=== PATIENT | female | born 1980 | race Caucasian/White ===

== ENCOUNTER 2016-11-29 20:21 | Outpatient (CLI) ==
[2013-03-04 15:44] VITALS: TEMP 98.9
[2016-09-09 07:21] VITALS: BMI 27.5
== END 2016-11-29 20:22 ==
LOC: AMBL 20:21
PROVIDERS: ATTEND Internal Medicine Geriatric Medicine
DX: S50.12XA Contusion of left forearm, initial encounter (principal); S50.11XA Contusion of right forearm, initial encounter; S40.022A Contusion of left upper arm, initial encounter; S40.021A Contusion of right upper arm, initial encounter; R10.84 Generalized abdominal pain; R51 Headache; M54.2 Cervicalgia; M54.9 Dorsalgia, unspecified; F19.10 Other psychoactive substance abuse, uncomplicated; Y00.XXXA Assault by blunt object, initial encounter; Y04.2XXA Assault by strike against or bumped into by another person, initial encounter

== ENCOUNTER 2017-05-26 07:57 | Emergency (ER) ==
[2017-05-26 08:06] VITALS: BP 144/94; TEMP 97.9; BMI 26.7
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
[2017-05-26 08:50] LABS: BASOPHILS % (AUTO) 0.4 % (0.0-3.0); EOSINOPHILS # (AUTO) 0.1 K/ul (0.0-0.7); EOSINOPHILS % (AUTO) 0.9 % (0.0-7.0); HEMOGLOBIN 13.2 g/dl (12.0-16.0); IMMATURE GRANULOCYTE % (AUTO) 0.3 % (0.0-5.0); LYMPHOCYTES # (AUTO) 2.5 K/uL (0.60-3.4); LYMPHOCYTES % (AUTO) 27.6 (10.0-50.0); MEAN CORPUSCULAR HEMOGLOBIN 32.7 pg (27.0-31.0); MEAN CORPUSCULAR HGB CONC 34.7 (31.8-35.4); MEAN CORPUSCULAR VOLUME 94.1 fl (81.0-99.0); MONOCYTES # (AUTO) 0.7 K/uL (0.4-2.0); MONOCYTES % (AUTO) 7.4 (0-10); NEUTROPHILS # (AUTO) 5.8 K/ul (2.0-6.9); NEUTROPHILS % (AUTO) 63.4; PLATELET COUNT 322 10^3/uL (140-440); RED BLOOD COUNT 4.04 10^6/ul (4.20-5.40); WHITE BLOOD COUNT 9.08 K/ul (4.6-10.2)
[2017-05-26 09:09] LABS: ALBUMIN 3.7 g/dL (3.4-5.0); ALBUMIN/GLOBULIN RATIO 1.32; ANION GAP 11.6; BILIRUBIN,TOTAL 0.31 mg/dL (0.00-1.20); BUN/CREATININE RATIO 8.97; CALCIUM 9.2 mg/dL (8.2-10.2); CREATININE 0.78 mg/dL (0.60-1.30); POTASSIUM 3.6 mmol/L (3.5-5.10); TOTAL PROTEIN 6.5 g/dL (6.4-8.2)
[2017-05-26 09:43] LABS: BILIRUBIN,URINE Negative (NEGATIVE); KETONES,URINE Negative (NEGATIVE); LEUKOCYTE ESTERASE ,URINE Trace (NEGATIVE); NITRITE,URINE Negative (NEGATIVE); PH,URINE 7.5 (5-9); PROTEIN,URINE Negative (NEGATIVE); URINE, BLOOD 1+ (NEGATIVE)
[2017-05-26 09:46] LABS: ADD URINE MICROSCOPIC YES
[2017-05-26] MEDS ORDERED: TYLENOL PO STA (10:11)
[2017-05-26 10:13] LABS: COCAIN SCREEN,URINE NEGATIVE (NEGATIVE)
== END 2017-05-26 11:12 | disposition home or self-care (01) ==
LOC: ED 07:57
DX: F15.90 Other stimulant use, unspecified, uncomplicated (principal); R11.2 Nausea with vomiting, unspecified; R10.9 Unspecified abdominal pain; F17.210 Nicotine dependence, cigarettes, uncomplicated; R46.89 Other symptoms and signs involving appearance and behavior
CPT/HCPCS: 36415; 80053; 80306; 81001; 82550; 83605; 85025; 99283

== ENCOUNTER 2017-08-26 16:09 | Emergency (ER) ==
[2017-08-26 16:15] VITALS: BP 161/124; TEMP 98.9; BMI 24.4
[2017-08-26] MEDS ORDERED: SODIUM CHLORIDE 1,000 ML IV STA (16:24)
[2017-08-26] MEDS ORDERED: CARDENE-NACL 20 MG/200 ML SOLN 20 MG in PREMIX 200ML 0.86% SODIUM CHLORIDE 1 BAG IV SCH (16:30)
--- NOTE | 2017-08-26 16:42 | CT ---
EXAM: CT BRAIN HISTORY: Left-sided weakness TECHNIQUE: CT brain without intravenous contrast. 5-mm axial sections with Reformations. COMPARISON: FINDINGS: Brain is unremarkable without distinct evidence of hemorrhage or large vessel distribution recent is chemic infarction. There is no suggestion of acute hydrocephalus or subdural fluid collection. No m ass or mass effect. Cranium is within normal limits. Mastoid air cells are aerated. The visualized paranasal sinuses a re clear. IMPRESSION: No acute intracranial process. MRI is more sensitive regarding acute ischemia and infar ction if indicated clinically.
[2017-08-26 16:46] LABS: BASOPHILS % (AUTO) 0.3 % (0.0-3.0); EOSINOPHILS % (AUTO) 0.3 % (0.0-7.0); HEMATOCRIT 38.3 % (37.0-47.0); HEMOGLOBIN 13.3 g/dl (12.0-16.0); IMMATURE GRANULOCYTE % (AUTO) 0.4 % (0.0-5.0); LYMPHOCYTES # (AUTO) 2.3 K/uL (0.60-3.4); LYMPHOCYTES % (AUTO) 18.9 (10.0-50.0); MEAN CORPUSCULAR HEMOGLOBIN 32.7 pg (27.0-31.0); MEAN CORPUSCULAR HGB CONC 34.7 (31.8-35.4); MEAN CORPUSCULAR VOLUME 94.1 fl (81.0-99.0); MONOCYTES # (AUTO) 0.9 K/uL (0.4-2.0); MONOCYTES % (AUTO) 7.5 (0-10); NEUTROPHILS # (AUTO) 8.8 K/ul (2.0-6.9); NEUTROPHILS % (AUTO) 72.6; PLATELET COUNT 335 10^3/uL (140-440); RED BLOOD COUNT 4.07 10^6/ul (4.20-5.40)
--- NOTE | 2017-08-26 16:59 | DI ---
EXAM: CHEST FRONTAL VIEW HISTORY: Cough. COMPARISON: 09/08/2014 FINDINGS: Heart size and mediastinum remain within normal limits. Lungs are free of infiltrate. No consolidation or pleural fluid. There is no pneumothorax or acute bony finding. IMPRESSION: Findings within normal limits.
[2017-08-26 17:12] LABS: ALANINE AMINOTRANSFERASE 12 U/L (12-78); ALBUMIN/GLOBULIN RATIO 1.18; ALKALINE PHOSPHATASE 73 U/L (42-98); ASPARTATE AMINO TRANSFERASE 10 U/L (15-37); BLOOD UREA NITROGEN 10 mg/dL (7-18); BUN/CREATININE RATIO 13.33; CALCIUM 9.5 mg/dL (8.2-10.2); CARBON DIOXIDE 22 mmol/L (21-32); CHLORIDE 107 mmol/L (98-107); CREATINE KINASE 47 U/L; CREATININE 0.75 mg/dL (0.60-1.30); GLUCOSE 99 mg/dL (70-110); SODIUM 139 mmol/L (136-145); TOTAL PROTEIN 7.4 g/dL (6.4-8.2)
--- NOTE | 2017-08-26 17:28 | ED.PDOC ---
General ED Provider: Dr. ANDREW PONCE Chief Complaint: Stroke Stated Complaint: pateint is a 36 year old female who is brought by family in wheelchair, stating that she is unable to move left side. She would no speak or answer questions. Family denies any seizures or Trauma. Time Seen by Physician: 16:49 Mode of Arrival: Walk-In Information Source: Family Exam Limitations: No limitations [facility] Nursing and Triage Documentation Reviewed and Agree: Yes Neurological Complaint Exam - Weakness Complaint/Exam Last Known Well: just prior to arrival Onset: Sudden Symptoms Are: Still present Timing: Constant Initial Severity: Severe Current Severity: Mild Character: Reports: Unable to describe Associated Signs and Symptoms: Reports: Loss of balance Cardiac Risk Factors: Reports: None CVA Risk Factors: Reports: None Related Surgical History: Reports: None JVD Present: No Carotid Bruit Present: No Rectal Heme Positive: No Nystagmus Present: No Gag Reflex Present: Yes Meningeal Signs Positive: No Focal Weakness: Present: LUE, LLE Gait: Abnormal Babinski Sign: Negative Right, Negative Left Differential Diagnoses: Metabolic abnormalities, Other (cva) Quality Indicators for Cardiac Chest Pain: EKG in 10min. Review of Systems - Review Of Systems Constitutional: Reports: Weakness, Loss of appetite Eyes: Reports: No symptoms Respiratory: Reports: No symptoms Cardiac: Reports: No symptoms GI: Reports: No symptoms : Reports: No symptoms Musculoskeletal: Reports: No symptoms Skin: Reports: No symptoms Neurological: Reports: Anxiety, Depressed, Emotional problems, Weakness All Other Systems: Reviewed and Negative Past Medical History - Past Medical History Previously Healthy: Yes Endocrine: Reports: None Cardiovascular: Reports: None Respiratory: Reports: None Hematological: Reports: None Gastrointestinal: Reports: None Genitourinary: Reports: None Neuro/Psych: Reports: Anxiety, Depression, Bipolar Disorder Musculoskeletal: Reports: None Cancer: Reports: None Last Menstrual Period: 3 weeks Other Pertinent Past Medical History: Drug Abuse - Surgical History General Surgical History: Reports: Tubal ligation - Family History Family History: Reports: Heart (MGM), Other (Mother COPD), Unknown (father) - Social History Smoking Status: Current every day smoker Hx Substance Use: Yes (ALCOHOLIC) Alcohol Screening: None - Immunizations Influenza Vaccine within 12 Months: No Pneumococcal Vaccine up to Date: No Physical Exam - Physical Exam Appearance: Ill-appearing Eyes: ZULEIMA, EOMI ENT: Ears normal Neck: Supple Respiratory: Airway patent, Breath sounds clear, Breath sounds equal, Respirations nonlabored Cardiovascular: Pulses normal, No rub, No murmur, Tachycardia GI/: Soft Musculoskeletal: Normal strength Skin: Warm, Dry Neurological: Focal Deficit Psychiatric: Anxious, Depressed Re-Evaluation - Re-Evaluation Time of Re-Evaluation: 18:15 Status: Improved Vital Signs Stable: Yes Appearance: NAD Lungs: Clear Skin: Warm and Dry Neuro: Alert and Oriented X3 (states she was pretending to have symtoms to get away from a home situation that was stressing her out.) Additional Comments: Feel anxious would like to have some xanax to help calm her nerves. Critical Care Note - Critical Care Note Total Time (mins): 35 Comments: Declined to have a counsellor called to see her declined to have police come see her Denies any suicidal or homicidal Ideation. Course - Course Hematology/Chemistry: 08/26/17 16:40 08/26/17 16:40 Orders, Labs, Meds: Lab Review 08/26/17 08/26/17 08/26/17 16:40 16:40 17:40 WBC 12.10 H RBC 4.07 L Hgb 13.3 Hct 38.3 MCV 94.1 MCH 32.7 H MCHC 34.7 RDW Coeff of Sarah 12.2 Plt Count 335 Immature Gran % (Auto) 0.4 Neut % (Auto) 72.6 Lymph % (Auto) 18.9 [place] % (Auto) 7.5 Eos % (Auto) 0.3 Baso % (Auto) 0.3 Immature Gran # (Auto) 0.1 Neut # 8.8 H Lymph # 2.3 [place]morton # 0.9 Eos # 0.0 Baso # 0.0 Sodium 139 Potassium 4.0 Chloride 107 Carbon Dioxide 22 Anion Gap 14.0 BUN 10 Creatinine 0.75 Estimated GFR (MDRD) 87.00 BUN/Creatinine Ratio 13.33 Glucose 99 Calcium 9.5 Total Bilirubin 0.30 AST 10 L ALT 12 Alkaline Phosphatase 73 Total Creatine Kinase 47 Troponin I < 0.0100 Total Protein 7.4 Albumin 4.0 Globulin 3.4 Albumin/Globulin Ratio 1.18 Urine Opiates Screen Negative Ur Oxycodone Screen Negative Urine Methadone Screen Negative Ur Propoxyphene Screen Negative Ur Barbiturates Screen Negative U Tricyclic Antidepress Negative Ur Phencyclidine Scrn Negative Ur Amphetamine Screen Positive U Methamphetamines Scrn Positive U Benzodiazepines Scrn Negative Urine Cocaine Screen Negative U Cannabinoids Screen Positive Orders Category Date Time Status EKG-(ED ONLY) Stat CARDIO 08/26/17 16:25 Completed ED ACCUCHECK ASSESSMENT .ONCE EMERGENCY 08/26/17 16:23 Active ED BRICK GRADER APPLIED .ONCE EMERGENCY 08/26/17 16:24 Active ED IV/MEDIPORT/POWERPORT .ONCE EMERGENCY 08/26/17 16:24 Active CBC W/ AUTO DIFF Stat LAB 08/26/17 16:40 Completed COMPREHENSIVE METABOLIC PANEL Stat LAB 08/26/17 16:40 Completed CREATINE KINASE Stat LAB 08/26/17 16:40 Completed DRUG SCREEN, URINE, RAPID Stat LAB 08/26/17 17:40 Completed TROPONIN I Stat LAB 08/26/17 16:40 Completed 0.9 % Sodium Chloride [Saline Flush] MEDS 08/26/17 16:24 Discontinued 1 syr IVF PRN PRN Alprazolam [Xanax] MEDS 08/26/17 17:50 Discontinued 0.5 mg .ROUTE .STK-MED ONE Alprazolam [Xanax] MEDS 08/26/17 17:47 Discontinued 0.5 mg PO ONCE STA Sodium Chloride 0.9% [Sodium Chloride] 1,000 ml MEDS 08/26/17 16:24 Discontinued IV 125 mls/hr CHEST, 1V AP ONLY Stat RADS 08/26/17 16:[address] HEAD W/O CONTRAST Stat RADS 08/26/17 16:23 Completed Medications Discontinued Medications Generic Name Dose Route Start Last Admin Trade Name Freq PRN Reason Stop Dose Admin Alprazolam 0.5 mg 08/26/17 17:47 08/26/17 17:55 Xanax PO 08/26/17 17:48 0.5 mg ONCE STA Administration Sodium Chloride 1,000 mls @ 125 mls/hr 08/26/17 16:24 08/26/17 17:11 Sodium Chloride IV 08/27/17 00:23 125 mls/hr .Q8H STA Administration Sodium Chloride 1 syr 08/26/17 16:24 08/26/17 17:11 Saline Flush IVF 1 syr PRN PRN Administration To flush IV Vital Signs: Temp Pulse Resp BP Pulse Ox 08/26/17 16:10 98.9 F 114 H 20 161/124 H 95 Departure - Departure Time of Disposition: 18:08 Disposition: HOME SELF-CARE Discharge Problem: Drug abuse, amphetamine type, Anxiety Instructions: Methamphetamine Abuse (ED) Condition: Stable Pt referred to PMD for follow-up: Yes Additional Instructions: Follow up with PCP in 2 days Call you counsellor is you need to talk to someone about your home stress. Allergies/Adverse Reactions: Allergies codeine Adverse Reaction (Verified 08/26/17 16:22) Home Medications: Ambulatory Orders Diazepam [Valium] 1 tab PO TID 10/06/15 Quetiapine Fumarate [Seroquel] 100 mg PO BEDTIME 07/26/16 Disposition Discussed With: Patient
[2017-08-26] MEDS ORDERED: XANAX PO STA (17:47)
[2017-08-26] MEDS ORDERED: XANAX ONE (17:50)
[2017-08-26 17:57] LABS: COCAIN SCREEN,URINE NEGATIVE (NEGATIVE)
== END 2017-08-26 18:20 | disposition home or self-care (01) ==
LOC: ED 16:09
DX: F15.10 Other stimulant abuse, uncomplicated (principal); F41.9 Anxiety disorder, unspecified; F17.210 Nicotine dependence, cigarettes, uncomplicated
CPT/HCPCS: 36415; 80053; 80306; 82550; 82962; 84484; 85025; 93005; 93010; 96360; 99283

== ENCOUNTER 2017-10-21 20:39 | Inpatient (IN) ==
[2017-10-21] MEDS: TORADOL IM STA ×2 (21:07→21:08)
[2017-10-21] MEDS ORDERED: KEFLEX PO STA (23:07)
[2017-10-21] MEDS ORDERED: VANCOMYCIN 1,000 MG in SODIUM CHLORIDE 200 ML IV STA ×2 (23:07→23:21)
--- NOTE | 2017-10-21 23:19 | ED.PDOC ---
General ED Provider: Dr. CHHAYA QUEZADA Chief Complaint: Bite Stated Complaint: Patient has swollen right hand, redness, stratek going up in the arm. says she injected some drugs, Time Seen by Physician: 23:16 Mode of Arrival: Walk-In Information Source: Patient Primary Care Provider: PETE ECHOLS Nursing and Triage Documentation Reviewed and Agree: Yes Reviewed sepsis parameters & appropriate labs ordered?: No System Inflammatory Response Syndrome: Not Applicable Sepsis Protocol: For patient's 13 years and over: Temp is 96.8 and below OR 101 and greater Pulse >90 BPM Resp >20/minute Acutely Altered Mental Status Are patient's symptoms suggestive of a new infection, such as: -Pneumonia -Skin, Soft Tissue -Endocarditis -UTI -Bone, Joint Infection -Implantable Device -Acute Abdominal Infection -Wound Infection -Meningitis -Blood Stream Catheter Infection -Unknown Skin Complaint Exam - Skin/Soft Tissue Complaint/Exam Symptoms Are: Still present Timing: Constant Initial Severity: Moderate Current Severity: Moderate Character: Reports: Redness, Swelling, Raised, Painful Aggravating: Reports: Touch Alleviating: Reports: None Associated Signs and Symptoms: Reports: Fever, Tenderness, Red streaks, Joint swelling. Denies: Chills, Itching, Drainage, Bruising Related History: Reports: Similar episode Related Surgical History: Reports: None Recent Exposure to Others w/Similar Symptoms: No Skin Findings: Present: Erythema, Induration, Skin lesion Differential Diagnoses: Cellulitis, MRSA Review of Systems - Review Of Systems Constitutional: Reports: No symptoms Eyes: Reports: No symptoms Ears, Nose, Mouth, Throat: Reports: No symptoms Respiratory: Reports: No symptoms Cardiac: Reports: No symptoms GI: Reports: No symptoms : Reports: No symptoms Musculoskeletal: Reports: No symptoms Neurological: Reports: No symptoms Endocrine: Reports: No symptoms Hematologic/Lymphatic: Reports: No symptoms All Other Systems: Reviewed and Negative Past Medical History - Past Medical History Previously Healthy: Yes Endocrine: Reports: None Cardiovascular: Reports: None Respiratory: Reports: None Hematological: Reports: None Gastrointestinal: Reports: None Genitourinary: Reports: None Neuro/Psych: Reports: Anxiety, Depression, Bipolar Disorder Musculoskeletal: Reports: None Cancer: Reports: None Last Menstrual Period: 2 months Other Pertinent Past Medical History: Drug Abuse - Surgical History General Surgical History: Reports: Tubal ligation - Family History Family History: Reports: Heart, Other (Mother COPD), Unknown (father) - Social History Smoking Status: Current every day smoker, Light tobacco smoker Hx Substance Use: Yes (ALCOHOLIC, marijuana) Alcohol Screening: None - Immunizations Tetanus Shot up to Date: No (2008) Influenza Vaccine within 12 Months: No Pneumococcal Vaccine up to Date: No Physical Exam - Physical Exam Appearance: Ill-appearing, Thin Eyes: ZULEIMA, EOMI Skin: Warm (rt hand red spot, at injectuion site, red streak going up in the arm ), Dry, Normal color Critical Care Note - Critical Care Note Total Time (mins): 30 Course - Course Hematology/Chemistry: 10/21/17 21:18 10/21/17 21:18 Orders, Labs, Meds: Lab Review 10/21/17 10/21/17 10/21/17 21:18 21:18 21:18 WBC 16.56 H RBC 4.12 L Hgb 13.5 Hct 40.2 MCV 97.6 MCH 32.8 H MCHC 33.6 RDW Coeff of Sarah 12.6 Plt Count 283 Immature Gran % (Auto) 0.3 Neut % (Auto) 71.1 Lymph % (Auto) 21.0 Potter % (Auto) 5.8 Eos % (Auto) 1.4 Baso % (Auto) 0.4 Immature Gran # (Auto) 0.1 Neut # 11.8 H Lymph # 3.5 H Potter # 1.0 Eos # 0.2 Baso # 0.1 Sodium 141 Potassium 3.4 L Chloride 105 Carbon Dioxide 25 Anion Gap 14.4 BUN 12 Creatinine 0.86 Estimated GFR (MDRD) 74.00 BUN/Creatinine Ratio 13.95 Glucose 94 Lactic Acid 13.1 Calcium 9.4 Total Bilirubin 0.6 AST 11 L ALT 11 L Alkaline Phosphatase 82 Total Protein 7.7 Albumin 4.0 Globulin 3.7 Albumin/Globulin Ratio 1.08 Procalcitonin 10/21/17 21:18 WBC RBC Hgb Hct MCV MCH MCHC RDW Coeff of Sarah Plt Count Immature Gran % (Auto) Neut % (Auto) Lymph % (Auto) Potter % (Auto) Eos % (Auto) Baso % (Auto) Immature Gran # (Auto) Neut # Lymph # Potter # Eos # Baso # Sodium Potassium Chloride Carbon Dioxide Anion Gap BUN Creatinine Estimated GFR (MDRD) BUN/Creatinine Ratio Glucose Lactic Acid Calcium Total Bilirubin AST ALT Alkaline Phosphatase Total Protein Albumin Globulin Albumin/Globulin Ratio Procalcitonin < 0.05 Orders Category Date Time Status ED IV/MEDIPORT/POWERPORT .ONCE EMERGENCY 10/21/17 23:07 Active BLOOD CULTURE Stat LAB 10/21/17 21:18 Received CBC W/ AUTO DIFF Stat LAB 10/21/17 21:18 Completed COMPREHENSIVE METABOLIC PANEL Stat LAB 10/21/17 21:18 Completed LACTIC ACID Stat LAB 10/21/17 21:18 Completed PROCALCITONIN Stat LAB 10/21/17 21:18 Completed URINALYSIS C & S IF INDICATED Stat LAB 10/21/17 20:59 Uncollected URINE DRUG SCREEN (RAPID FOR ED) [DRUG SCREEN, URINE, LAB 10/21/17 20:59 Uncollected RAPID] Stat URINE Stat LAB 10/21/17 20:59 Uncollected 0.9 % Sodium Chloride [Saline Flush] MEDS 10/21/17 23:07 Ordered 1 syr IVF PRN PRN Cephalexin [Keflex] MEDS 10/21/17 23:07 Discontinued 500 mg PO ONCE STA Ketorolac Tromethamine [Toradol] MEDS 10/21/17 20:58 Discontinued 30 mg IM ONCE STA Vancomycin HCl [Vancomycin] 1,000 mg MEDS 10/21/17 23:07 Active 0.9 % Sodium Chloride [Sodium Chloride] 200 ml IV ONCE Medications Generic Name Dose Route Start Last Admin Trade Name Freq PRN Reason Stop Dose Admin Vancomycin HCl 1,000 mg/ 200 mls @ 100 mls/hr 10/21/17 23:07 Sodium Chloride IV 10/22/17 01:06 ONCE STA Sodium Chloride 1 syr 10/21/17 23:07 Saline Flush IVF PRN PRN To flush IV Discontinued Medications Generic Name Dose Route Start Last Admin Trade Name Freq PRN Reason Stop Dose Admin Cephalexin 500 mg 10/21/17 23:07 Keflex PO 10/21/17 23:08 ONCE STA Ketorolac Tromethamine 30 mg 10/21/17 20:58 10/21/17 21:08 Toradol IM 10/21/17 20:59 Not Given ONCE STA Vital Signs: Temp Pulse Resp BP Pulse Ox 10/21/17 20:40 98.1 F 94 H 20 141/74 H 98 Departure - Departure Time of Disposition: 23:19 Disposition: ADMITTED INPATIENT Discharge Problem: Adenitis Cellulitis Qualifiers: Site of cellulitis: extremity Site of cellulitis of extremity: upper extremity Laterality: right Qualified Code(s): L03.113 - Cellulitis of right upper limb Instructions: Cellulitis (ED) Condition: Stable Pt referred to PMD for follow-up: No IPMP verified?: No Allergies/Adverse Reactions: Allergies codeine Adverse Reaction (Verified 10/21/17 20:51) ketorolac [From Toradol] Adverse Reaction (Verified 10/21/17 21:15) Home Medications: Ambulatory Orders 1 [No Reported Medications] 10/21/17 Disposition Discussed With: Patient
[2017-10-21] MEDS ORDERED: ROCEPHIN 1 GM in SODIUM CHLORIDE 50 ML IV SCH (23:30)
[2017-10-21] MEDS ORDERED: ZOFRAN 4 MG/2 ML IVP PRN (23:38)
[2017-10-21] MEDS ORDERED: VANCOMYCIN ONE (23:39)
[2017-10-22] MEDS ORDERED: VANCOMYCIN ONE (00:23)
[2017-10-22] MEDS: LIBRIUM PO SCH ×3 (00:52→20:27)
[2017-10-22] MEDS: SODIUM CHLORIDE 1,000 ML IV SCH ×2 (00:52→17:54)
[2017-10-22 01:43] VITALS: BMI 25.5
[2017-10-22] MEDS: LOVENOX SUBCUT SCH ×2 (01:56→09:36)
[2017-10-22] MEDS ORDERED: ROCEPHIN ONE (01:58)
[2017-10-22] MEDS ORDERED: TYLENOL PO PRN (08:33)
[2017-10-22] MEDS ORDERED: VANCOMYCIN 1,000 MG in SODIUM CHLORIDE 200 ML IV SCH (09:00)
[2017-10-22] MEDS ORDERED: NICODERM 21 MG TD SCH (09:00)
[2017-10-22] MEDS: NORCO 5-325 PO PRN ×2 (09:36→15:37)
[2017-10-22] MEDS: VANCOMYCIN 1.5 GM in SODIUM CHLORIDE 500 ML IV SCH (09:38)
[2017-10-22 18:08] VITALS: BP 145/87; TEMP 97.9
[2017-10-22] MEDS ORDERED: ROCEPHIN 1 GM in SODIUM CHLORIDE 50 ML IV SCH (21:00)
[2017-10-23] MEDS: VANCOMYCIN 1.5 GM in SODIUM CHLORIDE 500 ML IV SCH (01:49)
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
--- NOTE | 2017-12-11 10:38 | AMA ---
DATE OF VISIT: 10/22/17 The patient, Faby Wilson, was admitted with right upper extremity cellulitis from the IV drug use. The patient has been getting IV antibiotics, but after getting two doses the patient asked to leave the hospital as she has to take care of the daughter. We did explain the importance of taking the IV antibiotics as the infection can spread to the veins and can be a blood borne infection. She verbalized understanding. At this point the patient decided to go AMA and the patient signed that papers and just left the hospital. Advised in case that things get worse, please come back. ELIZABETH
== END 2017-10-22 21:00 | disposition left against medical advice (07) | DRG 603 ==
LOC: ED 20:39 → MEDSURG A 23:33
PROVIDERS: ADMIT Emergency Medicine; ATTEND Emergency Medicine
DX: L03.113 Cellulitis of right upper limb (principal); I80.8 Phlebitis and thrombophlebitis of other sites; F15.90 Other stimulant use, unspecified, uncomplicated; F11.90 Opioid use, unspecified, uncomplicated; F12.90 Cannabis use, unspecified, uncomplicated; I88.9 Nonspecific lymphadenitis, unspecified; F17.200 Nicotine dependence, unspecified, uncomplicated; F41.9 Anxiety disorder, unspecified
CPT/HCPCS: 36415; 80053; 80306; 81001; 81025; 83605; 84145; 85025; 87040; 93005; 93010; 96361; 96365; 96366; 99284

== ENCOUNTER 2018-01-09 18:01 | Outpatient (CLI) ==
[2013-03-04 15:44] VITALS: TEMP 98.9
[2018-01-09 18:26] VITALS: BMI 25.0
== END 2018-01-09 18:02 | disposition critical access hospital (66) ==
LOC: AMBL 18:01
PROVIDERS: ATTEND Emergency Medicine
DX: S19.9XXA Unspecified injury of neck, initial encounter (principal); S00.93XA Contusion of unspecified part of head, initial encounter; S49.92XA Unspecified injury of left shoulder and upper arm, initial encounter; S49.91XA Unspecified injury of right shoulder and upper arm, initial encounter; S89.91XA Unspecified injury of right lower leg, initial encounter; S89.92XA Unspecified injury of left lower leg, initial encounter; Y04.8XXA Assault by other bodily force, initial encounter

== ENCOUNTER 2018-01-09 18:12 | Emergency (ER) | payer MEDICAID, OTHER ==
[2018-01-09 18:26] VITALS: TEMP 98.6; BMI 25.0
[2018-01-09] MEDS ORDERED: ZOFRAN 4 MG/2 ML IM STA (19:11)
[2018-01-09] MEDS ORDERED: DEMEROL 25 MG/ML VIAL IM STA (19:11)
[2018-01-09 19:13] VITALS: BP 129/83
--- NOTE | 2018-01-09 19:35 | CT ---
EXAM: CT of the head without contrast. HISTORY: Injury. Headache. COMPARISON: None. TECHNIQUE: Contiguous axial images at 5 mm intervals were obtained from the base of the skull to the vertex of the calvarium. No contrast was given. FINDINGS: The CSF containing spaces are normal in size and position. There are no extraaxial fluid collections. There is no evidence of an acute intracranial hemorrhage. There are no masses or mass effect. No areas of abnormal density are identified. Wilson-white differentiation is normal. There i s a scalp hematoma over the left parietal bone. The line skull is intact. There is an air-fluid leve l in the right maxillary sinus. No displaced fractures are seen. The osseous and extracranial soft t issues are otherwise normal. IMPRESSION: 1. No acute intracranial abnormality. 2. Left parietal scalp hematoma. 3. Mucosal thickening air-fluid level in the right maxillary sinus has appearance of sinusitis. No displaced fractures are seen.
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
== END 2018-01-09 20:47 | disposition home or self-care (01) ==
LOC: ED 18:12
DX: S00.03XA Contusion of scalp, initial encounter (principal); S19.9XXA Unspecified injury of neck, initial encounter; Y04.8XXA Assault by other bodily force, initial encounter; F17.210 Nicotine dependence, cigarettes, uncomplicated
CPT/HCPCS: 96372; 99283

== ENCOUNTER 2018-05-16 13:31 | Emergency (ER) ==
[2018-05-16 13:36] VITALS: BP 141/86; TEMP 98.3; BMI 24.3
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
== END 2018-05-16 16:43 | disposition home or self-care (01) ==
LOC: ED 13:31
DX: F15.10 Other stimulant abuse, uncomplicated (principal); F32.9 Major depressive disorder, single episode, unspecified; F41.9 Anxiety disorder, unspecified; F17.210 Nicotine dependence, cigarettes, uncomplicated
CPT/HCPCS: 36415; 80053; 80306; 80307; 81001; 84703; 85025; 87086; 93005; 93010; 99283

== ENCOUNTER 2018-05-31 21:49 | Outpatient (CLI) ==
[2013-03-04 15:44] VITALS: TEMP 98.9
[2018-05-31 22:18] VITALS: BMI 21.9
== END 2018-05-31 21:55 | disposition critical access hospital (66) ==
LOC: AMBL 21:49
PROVIDERS: ATTEND Internal Medicine Geriatric Medicine
DX: R07.9 Chest pain, unspecified (principal)

== ENCOUNTER 2018-05-31 22:00 | Emergency (ER) ==
[2018-05-31 22:18] VITALS: BP 153/97; TEMP 97.1; BMI 21.9
[2018-05-31] MEDS ORDERED: SODIUM CHLORIDE 1,000 ML IV STA (22:32)
[2018-05-31] MEDS ORDERED: NITROSTAT SL STA (22:34)
[2018-05-31] MEDS ORDERED: GI COCKTAIL PO STA (22:34)
[2018-05-31] MEDS ORDERED: ASPIRIN CHEWABLE PO STA (22:34)
--- NOTE | 2018-05-31 22:38 | ED.PDOC ---
General ED Provider: Dr. ANDREW PONCE Chief Complaint: Chest Pain Stated Complaint: Brought by EMS with chest pain for 5 hours. Substernal in location radiating to the left neck with some mild nausea and shortness of breath. Time Seen by Physician: 22:10 Mode of Arrival: Ambulance Information Source: Patient Exam Limitations: No limitations Primary Care Provider: PEPITO SMITH Nursing and Triage Documentation Reviewed and Agree: Yes Does patient meet sepsis criteria?: No System Inflammatory Response Syndrome: Not Applicable Sepsis Protocol: For patient's 13 years and over: Temp is 96.8 and below OR 101 and greater Pulse >90 BPM Resp >20/minute Acutely Altered Mental Status Are patient's symptoms suggestive of a new infection, such as: -Pneumonia -Skin, Soft Tissue -Endocarditis -UTI -Bone, Joint Infection -Implantable Device -Acute Abdominal Infection -Wound Infection -Meningitis -Blood Stream Catheter Infection -Unknown Cardiovascular Complaint Exam - Chest Pain Complaint/Exam Onset: Gradual Duration: 5 hours Symptoms Are: Still present Timing: Constant Initial Severity: Severe Current Severity: Moderate Location: Reports: Midsternal Pain Radiates: Reports: Jaw Associated Signs and Symptoms: Reports: Nausea, Short of air. 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 Review of Systems - Review Of Systems Constitutional: Reports: No symptoms Eyes: Reports: No symptoms Ears, Nose, Mouth, Throat: Reports: No symptoms Respiratory: Reports: No symptoms Cardiac: Reports: Chest pain GI: Reports: Nausea, Poor appetite : Reports: No symptoms Musculoskeletal: Reports: No symptoms Skin: Reports: No symptoms Neurological: Reports: No symptoms Endocrine: Reports: No symptoms Hematologic/Lymphatic: Reports: No symptoms All Other Systems: Reviewed and Negative Past Medical History - Past Medical History Previously Healthy: Yes Endocrine: Reports: None Cardiovascular: Reports: None Respiratory: Reports: None Hematological: Reports: None Gastrointestinal: Reports: None Genitourinary: Reports: None Neuro/Psych: Reports: Anxiety, Depression, Bipolar Disorder Musculoskeletal: Reports: None Cancer: Reports: None Last Menstrual Period: LAST WEEK Other Pertinent Past Medical History: Drug Abuse - Surgical History General Surgical History: Reports: Tubal ligation - Family History Family History: Reports: Heart, Other (Mother COPD), Unknown (father) - Social History Smoking Status: Current every day smoker, Light tobacco smoker Hx Substance Use: Yes (ALCOHOL IN THE PAST-METH RECENTLY) Alcohol Screening: None - Immunizations Tetanus Shot up to Date: Yes Influenza Vaccine within 12 Months: No Pneumococcal Vaccine up to Date: No Physical Exam - Physical Exam Appearance: Ill-appearing Ill-appearing: Moderate Pain Distress: Severe Neck: Supple Respiratory: Airway patent, Breath sounds clear, Breath sounds equal, Respirations nonlabored Cardiovascular: RRR, Pulses normal, No rub, No murmur GI/: Soft, Nontender, No masses, Bowel sounds normal, No Organomegaly Musculoskeletal: Normal strength, ROM intact, No edema, No calf tenderness Skin: Warm, Dry, Normal color Neurological: Alert, Oriented Psychiatric: Anxious Interpretation - Radiology Interpretation Radiology Interpretation By: Radiologist Radiology Results: Negative Exam Interpreted: Portable CXR - EKG Interpretation Time of EKG #1: 22:05 Rate: Normal Rhythm: Sinus Ectopy: None [place]: NL ST Segment: Normal Interpretation: Normal EKG Re-Evaluation - Re-Evaluation Time of Re-Evaluation: 23:21 Status: Improved Critical Care Note - Critical Care Note Total Time (mins): 30 Course - Course Hematology/Chemistry: 05/31/18 22:42 05/31/18 22:42 Orders, Labs, Meds: Lab Review 05/31/18 05/31/18 05/31/18 22:42 22:42 22:42 WBC 10.03 RBC 4.27 Hgb 13.8 Hct 40.0 MCV 93.7 MCH 32.3 H MCHC 34.5 RDW Coeff of Sarah 12.8 Plt Count 313 Immature Gran % (Auto) 0.2 Neut % (Auto) 60.7 Lymph % (Auto) 31.9 Porter % (Auto) 4.9 Eos % (Auto) 2.1 Baso % (Auto) 0.2 Immature Gran # (Auto) 0.0 Neut # (Auto) 6.1 Lymph # (Auto) 3.2 Porter # (Auto) 0.5 Eos # (Auto) 0.2 Baso # (Auto) 0.0 D-Dimer (Manual) 285.71 Sodium 135.7 L Potassium 3.84 Chloride 104.8 Carbon Dioxide 24.9 Anion Gap 9.84 BUN 16.5 Creatinine 0.82 Estimated GFR (MDRD) 78.00 BUN/Creatinine Ratio 20.12 Glucose 128.6 H Calcium 9.38 Total Bilirubin 0.41 AST 20.0 ALT 23.6 Alkaline Phosphatase 65.8 Total Creatine Kinase 53.2 Troponin I < 0.012 Total Protein 7.20 Albumin 3.82 Globulin 3.38 Albumin/Globulin Ratio 1.13 Orders Category Date Time Status EKG-(ED ONLY) Stat CARDIO 05/31/18 22:32 Completed ED IV/MEDIPORT/POWERPORT .ONCE EMERGENCY 05/31/18 22:32 Active CBC W/ AUTO DIFF Stat LAB 05/31/18 22:42 Completed COMPREHENSIVE METABOLIC PANEL Stat LAB 05/31/18 22:42 Completed CREATINE KINASE Stat LAB 05/31/18 22:42 Completed D-DIMER Stat LAB 05/31/18 22:42 Received DRUG SCREEN, URINE, RAPID Stat LAB 05/31/18 22:40 Ordered TROPONIN I Stat LAB 05/31/18 22:42 Completed TROPONIN I Stat LAB 05/31/18 23:59 Ordered 0.9 % Sodium Chloride [Saline Flush] MEDS 05/31/18 22:32 Ordered 1 syr IVF PRN PRN Mag-Al Plus//Lidocaine [Gi Cocktail] MEDS 05/31/18 22:34 Discontinued 30 ml PO ONCE STA Nitroglycerin [Nitrostat] MEDS 05/31/18 22:34 Discontinued 0.4 mg SL ONCE STA Ondansetron HCl/Pf [Zofran 4 mg/2 ml] MEDS 05/31/18 22:45 Discontinued 4 mg IVP ONCE STA Sodium Chloride 0.9% [Sodium Chloride] 1,000 ml MEDS 05/31/18 22:32 Active IV 125 mls/hr CHEST, 1V AP ONLY Stat RADS 05/31/18 22:32 Ordered Medications Generic Name Dose Route Start Last Admin Trade Name Freq PRN Reason Stop Dose Admin Sodium Chloride 1,000 mls @ 125 mls/hr 05/31/18 22:32 05/31/18 22:50 Sodium Chloride IV 06/01/18 06:31 125 mls/hr .Q8H STA Administration Sodium Chloride 1 syr 05/31/18 22:32 05/31/18 22:56 Saline Flush IVF 1 syr PRN PRN Administration To flush IV Discontinued Medications Generic Name Dose Route Start Last Admin Trade Name Freq PRN Reason Stop Dose Admin Al Hydroxide/Mg Hydroxide 30 ml 05/31/18 22:34 05/31/18 22:48 Gi Cocktail PO 05/31/18 22:35 30 ml ONCE STA Administration Nitroglycerin 0.4 mg 05/31/18 22:34 05/31/18 22:49 Nitrostat SL 05/31/18 22:35 0.4 mg ONCE STA Administration Ondansetron HCl 4 mg 05/31/18 22:45 05/31/18 22:55 Zofran 4 Mg/2 Ml IVP 05/31/18 22:46 4 mg ONCE STA Administration Vital Signs: Temp Pulse Resp BP Pulse Ox 05/31/18 22:01 97.1 F L 80 16 153/97 H 98 JOSESITO Risk Score Age >/= 65: No >/= 3 CAD Risk Factors: Yes Known CAD (Stenosis >/= 50%): No ASA Use in Past 7 Days: No Severe Angina (>/= 2 episodes in 24 hours): No EKG ST Changes >/= 0.5mm: No Postive Cardiac Marker: No JOSESITO Total Score: 1 JOSESITO Risk Score: Risk Score Odds of by 30D 0 0.1 (0.1-0.2) 1 0.3 (0.2-0.3) 2 0.4 (0.3-0.5) 3 0.7 (0.6-0.9) 4 1.2 (1.0-1.5) 5 2.2 (1.9-2.6) 6 3.0 (2.5-3.6) 7 4.8 (3.8-6.1) Departure - Departure Time of Disposition: 00:30 Disposition: HOME SELF-CARE Discharge Problem: Dyspepsia, Non-cardiac chest pain, Anxiety Instructions: Chest Pain (ED), Anxiety (ED) Condition: Stable Pt referred to PMD for follow-up: Yes IPMP verified?: No Additional Instructions: Follow up with PCP in 2 days Take over the counter Benadryl as needed for anxiety or insomnia Use over the counter Maalox Stop use of Methamphetamine Allergies/Adverse Reactions: Allergies codeine Adverse Reaction (Verified 05/31/18 22:19) Hives cranberry Adverse Reaction (Verified 05/31/18 22:19) Swelling ketorolac [From Toradol] Adverse Reaction (Verified 05/31/18 22:19) Hives Home Medications: Ambulatory Orders Hydrocodone/Acetaminophen [[place] 7.5-325 Tablet] 1 each PO QID 05/31/18 Transfer Form Completed: No Disposition Discussed With: Patient
[2018-05-31] MEDS ORDERED: ZOFRAN 4 MG/2 ML IVP STA (22:45)
--- NOTE | 2018-06-01 07:59 | DI ---
EXAM: CHEST FRONTAL VIEW HISTORY: Chest pain. COMPARISON: 08/26/2017 FINDINGS: Heart size and mediastinum remain within normal limits. Lungs are free of infiltrate. No consolidation or pleural fluid. There is no pneumothorax or acute bony finding. IMPRESSION: Findings within normal limits.
== END 2018-06-01 01:00 | disposition home or self-care (01) ==
LOC: ED 22:00
DX: R10.13 Epigastric pain (principal); R07.89 Other chest pain; F41.9 Anxiety disorder, unspecified; F17.210 Nicotine dependence, cigarettes, uncomplicated
CPT/HCPCS: 36415; 80053; 80306; 82550; 84484; 85025; 85379; 93005; 93010; 96361; 96374; 99283

== ENCOUNTER 2018-10-08 13:33 | Outpatient (CLI) ==
[2013-03-04 15:44] VITALS: TEMP 98.9
--- NOTE | 2018-10-08 16:14 | DI ---
EXAM: Cervical spine five views, including oblique views HISTORY: Cervical degeneration COMPARISON: None TECHNIQUE: Five views cervical spine were performed, including oblique views FINDINGS: Vertebral bodies normal height. No fracture. No subluxation. Straightening of the glenn l cervical lordosis. Intervertebral disc spaces maintained. Neural foramen grossly patent. Prevert ebral soft tissues appear normal. IMPRESSION: 1. No fracture or subluxation. 2. Straightening of the normal cervical lordosis.
== END 2018-10-08 13:34 | disposition home or self-care (01) ==
LOC: RAD 13:33
PROVIDERS: ATTEND Pain Medicine Interventional Pain Medicine
DX: M50.31 Other cervical disc degeneration, high cervical region (principal); M50.320 Other cervical disc degeneration, mid-cervical region, unspecified level; M50.33 Other cervical disc degeneration, cervicothoracic region; M47.812 Spondylosis without myelopathy or radiculopathy, cervical region; M47.813 Spondylosis without myelopathy or radiculopathy, cervicothoracic region

== ENCOUNTER 2018-10-14 00:40 | Emergency (ER) ==
[2018-10-14 00:51] VITALS: TEMP 98.8; BMI 23.7
--- NOTE | 2018-10-14 01:00 | ED.PDOC ---
General ED Provider: Dr. ANDREW PONCE Chief Complaint: Hypertension Stated Complaint: I am stressed out and my blood pressure is high. admits to using marijuana from the same source. Time Seen by Physician: 00:56 Mode of Arrival: Walk-In Information Source: Patient Primary Care Provider: PEPITO SMITH Nursing and Triage Documentation Reviewed and Agree: Yes Does patient meet sepsis criteria?: No System Inflammatory Response Syndrome: Not Applicable Sepsis Protocol: For patient's 13 years and over: Temp is 96.8 and below OR 101 and greater Pulse >90 BPM Resp >20/minute Acutely Altered Mental Status Are patient's symptoms suggestive of a new infection, such as: -Pneumonia -Skin, Soft Tissue -Endocarditis -UTI -Bone, Joint Infection -Implantable Device -Acute Abdominal Infection -Wound Infection -Meningitis -Blood Stream Catheter Infection -Unknown Review of Systems - Review Of Systems Constitutional: Reports: No symptoms Eyes: Reports: No symptoms Ears, Nose, Mouth, Throat: Reports: No symptoms Respiratory: Reports: No symptoms Cardiac: Reports: Palpitations (prior to arrival now better ) GI: Reports: No symptoms : Reports: No symptoms Musculoskeletal: Reports: No symptoms Skin: Reports: No symptoms Neurological: Reports: Anxiety, Emotional problems Endocrine: Reports: No symptoms Hematologic/Lymphatic: Reports: No symptoms All Other Systems: Reviewed and Negative Past Medical History - Past Medical History Previously Healthy: Yes Endocrine: Reports: None Cardiovascular: Reports: None Respiratory: Reports: None Hematological: Reports: None Gastrointestinal: Reports: None Genitourinary: Reports: None Neuro/Psych: Reports: Anxiety, Depression, Bipolar Disorder, Other (PTSD) Musculoskeletal: Reports: None Cancer: Reports: None Last Menstrual Period: 3 DAYS AGO Other Pertinent Past Medical History: Drug Abuse - Surgical History General Surgical History: Reports: Tubal ligation - Family History Family History: Reports: Heart, Other (Mother COPD), Unknown (father) - Social History Smoking Status: Current every day smoker, Light tobacco smoker Hx Substance Use: Yes (ALCOHOL IN THE PAST-METH RECENTLY) Alcohol Screening: None - Immunizations Tetanus Shot up to Date: Yes Influenza Vaccine within 12 Months: No Pneumococcal Vaccine up to Date: No Physical Exam - Physical Exam Appearance: Well-appearing, No pain distress, Well-nourished Eyes: ZULEIMA, EOMI, Conjunctiva clear ENT: Ears normal, Nose normal, Oropharynx normal Respiratory: Airway patent, Breath sounds clear, Breath sounds equal, Respirations nonlabored Cardiovascular: RRR, Pulses normal, No rub, No murmur GI/: Soft, Nontender, No masses, Bowel sounds normal, No Organomegaly Musculoskeletal: Normal strength, ROM intact, No edema, No calf tenderness Skin: Warm, Dry, Normal color Neurological: Sensation intact, Motor intact, Reflexes intact, Cranial nerves intact, Alert, Oriented Psychiatric: Anxious Re-Evaluation - Re-Evaluation Time of Re-Evaluation: 01:14 Status: Improved Vital Signs Stable: Yes (bp 128/90) Critical Care Note - Critical Care Note Total Time (mins): 0 Course - Course Vital Signs: Temp Pulse Resp BP Pulse Ox 10/14/18 00:40 98.8 F 98 H 20 171/94 H 99 Departure - Departure Time of Disposition: :16 Disposition: HOME SELF-CARE Discharge Problem: Panic anxiety syndrome Instructions: Panic Attack (ED) Condition: Stable Pt referred to PMD for follow-up: Yes IPMP verified?: No Additional Instructions: continue home medications for anxiety and relaxation methods Follow up with YOUR pcp in 3-5 days. Allergies/Adverse Reactions: Allergies codeine Adverse Reaction (Verified 10/14/18 00:51) Hives cranberry Adverse Reaction (Verified 10/14/18 00:51) Swelling ketorolac [From Toradol] Adverse Reaction (Verified 10/14/18 00:51) Hives Home Medications: Ambulatory Orders Buprenorphine HCl/Naloxone HCl [Suboxone 8 mg-2 mg Sl Film] 1 each SL DAILY
[2018-10-14 01:27] VITALS: BP 117/74
== END 2018-10-14 01:27 | disposition home or self-care (01) ==
LOC: ED 00:40
DX: F41.0 Panic disorder [episodic paroxysmal anxiety] (principal); F17.210 Nicotine dependence, cigarettes, uncomplicated
CPT/HCPCS: 99283

== ENCOUNTER 2018-11-30 09:50 | Emergency (ER) ==
[2018-11-30 09:58] VITALS: BP 115/74; TEMP 98.1; BMI 23.5
--- NOTE | 2018-11-30 10:26 | ED.PDOC ---
General ED Provider: Dr. KARLA SAMSON Chief Complaint: Sore Throat Stated Complaint: flu like symptoms and sore throat Time Seen by Physician: 10:00 (seen with yonatan) Mode of Arrival: Walk-In Information Source: Patient Exam Limitations: No limitations Primary Care Provider: MINNIE CHOWDHURY Nursing and Triage Documentation Reviewed and Agree: Yes Does patient meet sepsis criteria?: No If yes, has appropriate treatment been initiated?: No System Inflammatory Response Syndrome: Not Applicable Sepsis Protocol: For patient's 13 years and over: Temp is 96.8 and below OR 101 and greater Pulse >90 BPM Resp >20/minute Acutely Altered Mental Status Are patient's symptoms suggestive of a new infection, such as: -Pneumonia -Skin, Soft Tissue -Endocarditis -UTI -Bone, Joint Infection -Implantable Device -Acute Abdominal Infection -Wound Infection -Meningitis -Blood Stream Catheter Infection -Unknown EENT Complaint Exam - Throat Complaint/Exam Onset/Duration: 2 days Symptoms Are: Still present Timimg: Intermittent Initial Severity: Moderate Current Severity: Mild Aggravating: Reports: Eating Alleviating: Reports: None Associated Signs and Symptoms: Reports: Chills, Cough, Nasal congestion. Denies : Fever, Dysphagia, Drooling, Foreign body sensation, Wheezing, Hoarseness, Sinus discomfort, Difficulty breathing, Lethargy, Irritability, Decreased activity, Vomiting, Diarrhea, Decreased hearing, Ear drainage Related History: Reports: Similar Episode Uvula Midline: Yes Hope-tonsillar Fluctuence: No Scarlatinaform Rash Present: No Lesions: Absent: Lip, Gums, Tongue, Buccal Mucosa, Pharynx Exanthem: Absent: Lip, Gums, Tongue, Buccal Mucosa, Pharynx Vesicles: Absent: Lip, Gums, Tongue, Buccal Mucosa, Pharynx Stridor Present: No Sinus Tenderness Present: No Tonsillar Hypertrophy Present: No Tonsillar Exudate Present: No Hope-tonsillar Swelling Present: No Adenopathy Present: No Splenomegaly Present: No Differential Diagnoses: Influenza, Pharyngitis Review of Systems - Review Of Systems Constitutional: Reports: Chills, Fever, Malaise, Loss of appetite Eyes: Reports: No symptoms Ears, Nose, Mouth, Throat: Reports: Throat pain Respiratory: Reports: Cough Cardiac: Reports: No symptoms GI: Reports: No symptoms : Reports: No symptoms Musculoskeletal: Reports: No symptoms Skin: Reports: No symptoms Neurological: Reports: No symptoms Endocrine: Reports: No symptoms Hematologic/Lymphatic: Reports: No symptoms All Other Systems: Reviewed and Negative Past Medical History - Past Medical History Previously Healthy: Yes Endocrine: Reports: None Cardiovascular: Reports: None Respiratory: Reports: None Hematological: Reports: None Gastrointestinal: Reports: None Genitourinary: Reports: None Neuro/Psych: Reports: Anxiety, Depression, Bipolar Disorder Musculoskeletal: Reports: None Cancer: Reports: None Last Menstrual Period: now Other Pertinent Past Medical History: Drug Abuse - Surgical History General Surgical History: Reports: Tubal ligation - Family History Family History: Reports: Heart, Other (Mother COPD), Unknown (father) - Social History Smoking Status: Current every day smoker, Light tobacco smoker Hx Substance Use: Yes (ALCOHOL IN THE PAST-METH RECENTLY) Alcohol Screening: None - Immunizations Influenza Vaccine within 12 Months: No Pneumococcal Vaccine up to Date: No Physical Exam - Physical Exam Appearance: Ill-appearing Ill-appearing: Moderate Eyes: ZULEIMA, EOMI, Conjunctiva clear ENT: Erythema, Exudate Respiratory: Rhonchi Cardiovascular: RRR, Pulses normal, No rub, No murmur GI/: Soft, Nontender, No masses, Bowel sounds normal, No Organomegaly Musculoskeletal: Normal strength, ROM intact, No edema, No calf tenderness Skin: Warm, Dry, Normal color Neurological: Sensation intact, Motor intact, Reflexes intact, Cranial nerves intact, Alert, Oriented Psychiatric: Affect appropriate, Mood appropriate Critical Care Note - Critical Care Note Total Time (mins): 0 Course - Course Vital Signs: Temp Pulse Resp BP Pulse Ox 11/30/18 09:51 98.1 F 98 H 20 115/74 95 Departure - Departure Time of Disposition: 10:25 Disposition: HOME SELF-CARE Discharge Problem: Sore throat symptom, Viral syndrome Pharyngitis Qualifiers: Pharyngitis/tonsillitis etiology: unspecified etiology Qualified Code(s): J02.9 - Acute pharyngitis, unspecified Instructions: Pharyngitis (ED), Strep Throat (DC) Condition: Good Pt referred to PMD for follow-up: No IPMP verified?: No Additional Instructions: Please call your Family Physician as soon as possible to schedule a follow-up appointment. Allergies/Adverse Reactions: Allergies codeine Adverse Reaction (Verified 11/30/18 09:58) Hives cranberry Adverse Reaction (Verified 11/30/18 09:58) Swelling ketorolac [From Toradol] Adverse Reaction (Verified 11/30/18 09:58) Hives
== END 2018-11-30 10:48 | disposition home or self-care (01) ==
LOC: ED 09:50
DX: J02.9 Acute pharyngitis, unspecified (principal); B34.9 Viral infection, unspecified; F17.210 Nicotine dependence, cigarettes, uncomplicated
CPT/HCPCS: 99282